=== PATIENT | female | born 1985 | race Native Hawaiian/Other Pacific Islander ===

== ENCOUNTER 2017-10-10 21:55 | Emergency (ER) | payer OTHER ==
[~2017-10-10] VITALS: Ht 165.1 cm; Wt 93.0 kg
[2017-10-10 22:43] LABS: PLATELET COUNT 296 K/uL (152-353)
== END 2017-10-10 23:25 | disposition home or self-care (01) ==
LOC: ED 21:55
DX: J30.9 Allergic rhinitis, unspecified (principal)
CPT/HCPCS: 36415; 80053; 85027; 87081; 87804; 87880; 99283

== ENCOUNTER 2018-06-18 17:03 | Emergency (ER) | payer OTHER ==
[~2018-06-18] VITALS: Ht 165.1 cm; Wt 81.6 kg
[2018-06-18 17:15] VITALS: TEMP 98.1
[2018-06-18 18:02] VITALS: BP 121/78
== END 2018-06-18 18:05 | disposition home or self-care (01) ==
LOC: ED 17:03
DX: L01.00 Impetigo, unspecified (principal)
CPT/HCPCS: 99281